=== PATIENT | male | born 1960 | race African-American/Black ===

== ENCOUNTER 2019-09-21 00:33 | Outpatient (CLI) | payer OTHER, SELFPAY ==
[2019-09-21 17:31] LABS: SARS-CoV-2 RNA PCR Negative
== END 2019-09-21 00:34 | disposition home or self-care (01) ==
LOC: ANHCOVIDDT 00:33
PROVIDERS: Internal Medicine Gastroenterology; PCP Internal Medicine; Visit Provider Internal Medicine Gastroenterology
DX: Z01.812 Encounter for preprocedural laboratory examination (principal); Z20.828 Contact with and (suspected) exposure to other viral communicable diseases
CPT/HCPCS: 87635; C9803; U0003

== ENCOUNTER 2019-09-23 01:50 | Day surgery (SDC) | payer OTHER, SELFPAY ==
[2019-09-15 13:41] VITALS: BMI 32.8
[2019-09-23 06:28] VITALS: BP 135/61; PULSE 76; RESP 14; TEMP 37; O2SAT 96
[2019-09-23] MEDS: LACTATED RINGERS 1,000 ML 150 ML IV CONT (06:42)
[2019-09-23 06:51] LABS: Glucose Point of Care 99 (65-105)
--- NOTE | 2019-09-23 06:52 | P.HP_ITS ---
History of Present Illness History of Present Illness Consent: Risks, benefits, and alternatives have been discussed and questions answered. Patient agrees to proceed with procedure. Chief complaint: Neoplasm Screening Narrative: Kush Gonsalez III is a 59 year old AA male Referred for screening colonoscopy. Patient is asymptomatic. There is no known family history of colon polyps or colon cancer. Patient states he had a colonoscopy 10-15 years ago which was normal. [facility] Past Medical History Medical History Dyslipidemia Gout Hypertension Surgical History Surgical History S/P left knee arthroscopy Social History Social History Smoking status: Never smoker Alcohol intake: current Drinks per week: 6 Substance use: never Meds Home Medications and Allergies Home Medications Medication Instructions Recorded Confirmed Type hydrochlorothiazide 25 mg tablet 25 mg PO DAILY 06/15/19 09/15/19 History metformin 500 mg tablet 1,000 mg PO DAILY 06/15/19 09/15/19 History naproxen 500 mg tablet 500 mg PO PRN PRN 06/15/19 09/15/19 History phentermine 37.5 mg capsule 37.5 mg PO DAILY 06/15/19 09/15/19 History losartan 50 mg tablet 50 mg PO DAILY #90 tablet 06/21/19 09/15/19 Rx testosterone cypionate 200 mg/mL 200 mg IM WEEKLY #10 ml 06/21/19 09/15/19 Rx intramuscular oil sildenafil [Viagra] 100 mg PO PRN PRN 09/15/19 09/15/19 History tamsulosin 0.4 mg PO DAILY 09/15/19 09/15/19 History Allergies Allergy/AdvReac Type Severity Reaction Status Date / Time No Known Allergies Allergy Unverified 09/23/19 06:25 Vital Signs Vital Signs - 24 hr 09/23/19 06:28 Temperature 37.0 C Pulse Rate 76 Respiratory Rate 14 Blood Pressure 135/61 Pulse Oximetry 96 Exam Const: Orientation/consciousness: patient oriented x3 Resp: Auscultation: clear to auscultation bilaterally Cardio: Rate: regular rate Rhythm: regular rhythm Heart sounds: no mu rmurs GI: GI Palp: Yes Soft to palpation, No Tenderness to palpation present (GI), Yes No hepatosplenomegaly present and No Palpable mass present Auscultation: normal bowel sounds Neuro: General: patient oriented x3 and no focal motor deficits Extrem: General: no pedal edema Assessment and Plan Assessment and plan (1) Erectile dysfunction: Code(s): N52.9 - Male erectile dysfunction, unspecified Status: Acute (2) Diabetes: Code(s): E11.9 - Type 2 diabetes mellitus without complications Status: Acute Additional Plan screening colonoscopy in average risk patient
--- NOTE | 2019-09-23 06:59 | WPDANESEPPF ---
Anes - Initial Pre Proc Eval Procedure: Operation Date: 09/23/19 07:30 Proposed Procedures p Screening Colonoscopy - Jay Deng MD Date/Time: 09/23/19 06:59 Surgeon: Jay Deng MD Pre Op Diagnosis: Neoplasm Screening Patient Data Age: 59 Gender: M Height: 6 ft Weight: 133.3 kg Last Vital Signs Temp 37.0 C 09/23/19 06:28 Pulse 76 09/23/19 06:28 Resp 14 09/23/19 06:28 BP 135/61 09/23/19 06:28 Pulse Ox 96 09/23/19 06:28 Allergies Allergy/AdvReac Type Severity Reaction Status Date / Time No Known Allergies Allergy Unverified 09/23/19 06:25 Home Medications Medication Instructions Recorded Confirmed Type hydrochlorothiazide 25 mg tablet 25 mg PO DAILY 06/15/19 09/15/19 History metformin 500 mg tablet 1,000 mg PO DAILY 06/15/19 09/15/19 History naproxen 500 mg tablet 500 mg PO PRN PRN 06/15/19 09/15/19 History phentermine 37.5 mg capsule 37.5 mg PO DAILY 06/15/19 09/15/19 History losartan 50 mg tablet 50 mg PO DAILY #90 tablet 06/21/19 09/15/19 Rx testosterone cypionate 200 mg/mL 200 mg IM WEEKLY #10 ml 06/21/19 09/15/19 Rx intramuscular oil sildenafil [Viagra] 100 mg PO PRN PRN 09/15/19 09/15/19 History tamsulosin 0.4 mg PO DAILY 09/15/19 09/15/19 History Laboratory Tests 09/23/19 06:48 POC Capillary Glucose 99 mg/dl mg/dl (65-105) Patient hx anesthesia problems: none Family hx anesthesia problems: none PMFSH Past Medical History Medical History Dyslipidemia Gout Hypertension Surgical History Surgical History S/P left knee arthroscopy Social History Social History Smoking status: Never smoker Alcohol intake: current Drinks per week: 6 Substance use: never Anes - Eval Final PreProcedure Day of Procedure 09/23/19 06:59 Patient weight: morbidly obese Heart: regular rate and rhythm Lungs: clear to auscultation Airway: Mallampati scale class II Neurological: alert and oriented Last oral intake: >/= 8 hours ASA classification: III Emergent: no Anesthetic plan: proceed Anesthesia type and monitoring: general GIVS and standard monitoring Informed Consent: The patient's anesthetic plan and its attendant risks and benefits were discussed with the patient/family/POA. Questions were solicited and answers provided to the satisfaction of the patient/family/POA.
[2019-09-23 07:46] VITALS: BP 105/70; PULSE 85; RESP 20; O2SAT 96
[2019-09-23 07:56] VITALS: BP 124/71; PULSE 78; RESP 20; O2SAT 97
[2019-09-23 08:06] VITALS: BP 127/76; PULSE 77; RESP 22; O2SAT 96
== END 2019-09-23 08:17 | disposition home or self-care (01) ==
PROVIDERS: PCP Family Medicine; Visit Provider Internal Medicine Gastroenterology
PROC: 0DJD8ZZ Inspection of Lower Intestinal Tract, Via Natural or Artificial Opening Endoscopic (ICD-10-PCS; CPT 45378; principal; 2019-09-23 07:30)
DX: Z12.11 Encounter for screening for malignant neoplasm of colon (principal); K64.1 Second degree hemorrhoids; K64.4 Residual hemorrhoidal skin tags; E78.5 Hyperlipidemia, unspecified; I10 Essential (primary) hypertension; M10.9 Gout, unspecified; N52.9 Male erectile dysfunction, unspecified; E11.9 Type 2 diabetes mellitus without complications; Z79.84 Long term (current) use of oral hypoglycemic drugs
CPT/HCPCS: 45378; J2704; J7120

== ENCOUNTER 2019-10-27 17:45 | Outpatient (CLI) | payer OTHER, SELFPAY ==
--- NOTE | ~2019-10-27 | US_ITS ---
EXAMINATION: US venous doppler UE LT DATE: 10/27/2019 19:10 INDICATION: Left upper extremity pain and lump TECHNIQUE: Grayscale ultrasound images without and with compression and Doppler ultrasound images of the left upper extremity veins were obtained. COMPARISON: None. FINDINGS: The left internal jugular vein, subclavian vein, axillary vein, brachial veins, basilic vein, cephali c vein, radial vein, and ulnar vein are patent. There is a 3 mm hypoechoic area in the superficial ash bcutaneous tissues near the left elbow without internal vascularity. IMPRESSION: 1. No evidence of deep venous thrombosis. 2. Tiny hypoechoic area in the area of clinical concern in the superficial subcutaneous tissues with no internal vascularity, possibly related to prior trauma. Continued clinical follow-up is recommende d. Reviewed, dictated and finalized at location A. IMPRESSION: 1. No evidence of deep venous thrombosis. 2. Tiny hypoechoic area in the area of clinical concern in the superficial subc utaneous tissues with no internal vascularity, possibly related to prior trauma . Continued clinical follow-up is recommended.
== END 2019-10-27 17:46 | disposition home or self-care (01) ==
PROVIDERS: PCP Family Medicine; Visit Provider Nurse Practitioner Family
DX: R22.32 Localized swelling, mass and lump, left upper limb (principal); M79.622 Pain in left upper arm
CPT/HCPCS: 93971

== ENCOUNTER 2020-02-01 10:49 | Outpatient (CLI) | payer OTHER, SELFPAY ==
--- NOTE | ~2020-02-01 | XR_ITS ---
XR foot RT min 3V DATE: 02/01/2020 11:04 INDICATION: Right ankle and dorsal foot pain for months TECHNIQUE: 4 views COMPARISON: None FINDINGS: Slight plantar and mild posterior calcaneal enthesopathy. There is hypertrophic degenerative spurring dorsally at the tarsal and tarsal-metatarsal joints consi stent with osteoarthritis. There is severe osteophyte is at the first metatarsophalangeal joint. There is mild hallux valgus and bunion deformity. No fracture, dislocation, periosteal reaction or bone destruction is detected. IMPRESSION: Polyarticular osteoarthritis Calcaneal enthesopathy Hallux valgus and bunion deformity Reviewed, dictated and finalized at location A.
--- NOTE | ~2020-02-01 | XR_ITS ---
XR ankle RT min 3V DATE: 02/01/2020 11:04 INDICATION: Right ankle and foot pain for months. No injury. TECHNIQUE: 4 views COMPARISON: None FINDINGS: No fracture or dislocation of the ankle or disruption of the ankle mortise. No periosteal r eaction or bone destruction. Hypertrophic osteophytic spurring is noted at the tarsal and tarsometatarsal joints. Mild posterior and slight inferior calcaneal enthesopathy. IMPRESSION: No fracture or dislocation of the ankle Plantar and posterior calcaneal enthesopathy Osteophytic changes at the tarsal and tarsometatarsal joints Reviewed, dictated and finalized at location A.
== END 2020-02-01 10:50 | disposition home or self-care (01) ==
PROVIDERS: PCP Family Medicine; Visit Provider Family Medicine
DX: M77.31 Calcaneal spur, right foot (principal); M20.11 Hallux valgus (acquired), right foot; M19.071 Primary osteoarthritis, right ankle and foot; M77.32 Calcaneal spur, left foot
CPT/HCPCS: 73610; 73630

== ENCOUNTER 2020-04-03 07:54 | Outpatient (CLI) | payer OTHER, SELFPAY ==
--- NOTE | 2020-04-08 17:01 | WPDHOMESLEEP ---
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 He has a history of obstructive sleep apnea on a prior home sleep test 10/21/2018 with an AHI of 25.2 and desaturation to 73% with 62 minutes or 14% of the time spent below 88%. He has lost significant amount of weight. His prior BMI was 40.6 with a weight of 300 lb. Now, he weighs 200 lb with a BMI of 27.1. This home sleep test is to re-evaluate his need for ongoing use of CPAP. He does not awaken from sleep feeling short of breath. He does not awaken at night with heartburn and belching or coughing. He rarely snores and it is rarely loud enough that others complain about it. He occasionally has trouble sleep with a cold. He denies gasping for breath at night, does not have breathing problems at night reported to him by others, does not sweat excessively at night or notices his heart pounding or beating irregularly at night. He denies falling asleep during the day. He does not fall asleep involuntarily, while driving, with physical effort. He denies loss of muscle tone was strong emotion. He does not have daytime difficulties due to excessive sleepiness. He does not feel paralyzed on waking or falling asleep. He does not have vivid dreamlike scenes upon awakening or falling asleep. He is never afraid to go to sleep. He denies nightmares, he does not recall his dreams. He does not have racing thoughts. He does not feel sad or depressed. He denies having anxiety. He denies muscular tension, noticing parts of his body jerking, kicking at night, crawling or aching feelings in his legs at night, leg pain at night or morning jaw pain. He denies grinding his teeth during sleep. He had is not bothered by pain during the day nor is her awakened with pain at night. He does not take naps. A short nap may be refreshing. He feels refreshed when he wakes in the morning. Normal bedtime is 4:00 p.m.- 5:00 p.m., falling asleep within 20 minutes. He wakes at 9:00 p.m.. He estimates 6-8 hours of sleep however if he goes to bed at 4:00 p.m. and sleeps until 9:00 p.m. that is 5 hours at most. He keeps the same schedule on the weekends. He works split shifts 9:00 p.m. until 10:00 a.m. 9 [facility] Past Medical History Medical History (Updated 04/08/20 @ 23:08 by Hazel Parisi MD) Dyslipidemia Gout Hypertension Obstructive sleep apnea Surgical History Surgical History S/P left knee arthroscopy Social History Social History Smoking status: Never smoker Alcohol intake: current Drinks per week: 6 Substance use: never Medications Home Medications Medication Instructions Recorded Confirmed Type hydrochlorothiazide 25 mg tablet 25 mg PO DAILY 06/15/19 09/15/19 History metformin 500 mg tablet 1,000 mg PO DAILY 06/15/19 09/15/19 History naproxen 500 mg tablet 500 mg PO PRN PRN 06/15/19 09/15/19 History phentermine 37.5 mg capsule 37.5 mg PO DAILY 06/15/19 09/15/19 History losartan 50 mg tablet 50 mg PO DAILY #90 tablet 06/21/19 09/15/19 Rx sildenafil [Viagra] 100 mg PO PRN PRN 09/15/19 09/15/19 History tamsulosin 0.4 mg PO DAILY 09/15/19 09/15/19 History testosterone cypionate 200 mg/mL 200 mg IM WEEKLY #10 ml 01/19/20 Rx intramuscular oil Sleep Procedure This test was performed using 4 channel monitoring including respiratory effort channel, snoring channel, heart rate channel, and oxygen saturation channel. This study was scored using [facility] guidelines. Sleep Architecture Not applicable fo
[2020-04-08 23:19] VITALS: BMI 27.1
== END 2020-04-03 07:55 | disposition home or self-care (01) ==
LOC: ANHCSM 07:54
PROVIDERS: PCP Family Medicine; Visit Provider Family Medicine
DX: G47.33 Obstructive sleep apnea (adult) (pediatric) (principal)
CPT/HCPCS: 95806

== ENCOUNTER 2021-09-03 00:32 | Day surgery (SDC) | payer OTHER, SELFPAY ==
[2021-08-16 13:32] VITALS: BMI 24.2
--- NOTE | 2021-08-31 15:06 | PM.HPGS ---
History of Present Illness History of Present Illness Consent: Risks, benefits, and alternatives have been discussed and questions answered. Patient agrees to proceed with procedure. Chief complaint: neoplasm screening Narrative: Kush Gonsalez III is a 61 year old male Referred for colon cancer screening. Review of Systems Review of Systems: All systems reviewed & are unremarkable except as noted in HPI and below PMFSH Past Medical History Medical History Dyslipidemia Gout Hypertension Obstructive sleep apnea Surgical History Surgical History S/P left knee arthroscopy Social History Social History Smoking status: Never smoker Alcohol intake: current Drinks per week: 1 Alcohol use details: 1 per month Substance use: never Substance use type: does not use Living arrangements: with family Spiritual care concerns: No Meds Home Medications and Allergies Home Medications Medication Instructions Recorded Confirmed Type sildenafil [Viagra] 100 mg PO PRN PRN 09/15/19 08/16/21 History testosterone cypionate 200 mg/mL 200 mg IM WEEKLY #10 ml 01/19/20 08/16/21 Rx intramuscular oil allopurinol 100 mg PO DAILY 08/16/21 08/16/21 History Allergies Allergy/AdvReac Type Severity Reaction Status Date / Time No Known Allergies Allergy Verified 09/03/21 06:27 Exam Resp: Auscultation: clear to auscultation bilaterally Cardio: Rate: regular rate Rhythm: regular rhythm GI: GI Palp: Yes Soft to palpation and No Tenderness to palpation present (GI) Assessment and Plan Assessment and plan (1) Colon cancer screening: Code(s): Z12.11 - Encounter for screening for malignant neoplasm of colon Status: Acute Assessment and Plan: Colonoscopy with possible biopsy or polypectomy or cautery or injection of substances.
[2021-09-03 06:28] VITALS: BP 128/62; PULSE 58; RESP 18; TEMP 36.2; O2SAT 100
[2021-09-03] MEDS: LACTATED RINGERS 1,000 ML 150 ML IV CONT (06:41)
--- NOTE | 2021-09-03 07:10 | WPDANESEPPF ---
Anes - Initial Pre Proc Eval Procedure: Operation Date: 09/03/21 07:30 Proposed Procedures p Screening Colonoscopy - Edmund Claros MD Date/Time: 09/03/21 07:10 Surgeon: Edmund Claros MD Pre Op Diagnosis: neoplasm screening Patient Data Age: 61 Gender: M Height: 1.83 m Weight: 79.7 kg Last Vital Signs Temp 97.1 F L 09/03/21 06:28 Pulse 58 L 09/03/21 06:28 Resp 18 09/03/21 06:28 BP 128/62 09/03/21 06:28 Pulse Ox 100 09/03/21 06:28 Allergies Allergy/AdvReac Type Severity Reaction Status Date / Time No Known Allergies Allergy Verified 09/03/21 06:27 Home Medications Medication Instructions Recorded Confirmed Type sildenafil [Viagra] 100 mg PO PRN PRN 09/15/19 08/16/21 History testosterone cypionate 200 mg/mL 200 mg IM WEEKLY #10 ml 01/19/20 08/16/21 Rx intramuscular oil allopurinol 100 mg PO DAILY 08/16/21 08/16/21 History Patient hx anesthesia problems: none Family hx anesthesia problems: none Results Review: All pre-operative results and documents have been reviewed as part of the pre-operative evaluation. [facility] Past Medical History Medical History Dyslipidemia Gout Hypertension Obstructive sleep apnea Surgical History Surgical History S/P left knee arthroscopy Social History Social History Smoking status: Never smoker Alcohol intake: current Drinks per week: 1 Alcohol use details: 1 per month Substance use: never Substance use type: does not use Living arrangements: with family Spiritual care concerns: No Anes - Eval Final PreProcedure Day of Procedure 09/03/21 07:10 Patient weight: normal Heart: regular rate and rhythm Lungs: clear to auscultation Airway: Mallampati scale class II Neurological: alert and oriented Last oral intake: >/= 8 hours ASA classification: II Emergent: no Anesthetic plan: proceed Anesthesia type and monitoring: general GIVS and standard monitoring Results Review: All pre-operative results and documents have been reviewed as part of the pre-operative evaluation. Informed Consent: The patient's anesthetic plan and its attendant risks and benefits were discussed with the patient/family/POA. Questions were solicited and answers provided to the satisfaction of the patient/family/POA.
[2021-09-03 07:45] VITALS: BP 97/55; PULSE 53; RESP 18; O2SAT 99
[2021-09-03 07:55] VITALS: BP 113/70; PULSE 53; RESP 17; O2SAT 100
[2021-09-03 08:05] VITALS: BP 129/75; PULSE 50; RESP 20; O2SAT 100
== END 2021-09-03 08:10 | disposition home or self-care (01) ==
PROVIDERS: PCP Family Medicine; Visit Provider Internal Medicine Gastroenterology
PROC: 0DJD8ZZ Inspection of Lower Intestinal Tract, Via Natural or Artificial Opening Endoscopic (ICD-10-PCS; CPT 45378; principal; 2021-09-03 07:30)
DX: Z12.11 Encounter for screening for malignant neoplasm of colon (principal); K64.8 Other hemorrhoids; E78.5 Hyperlipidemia, unspecified; I10 Essential (primary) hypertension; M10.9 Gout, unspecified; G47.33 Obstructive sleep apnea (adult) (pediatric)
CPT/HCPCS: 45378; J2704; J7120

== ENCOUNTER 2021-09-15 12:47 | Outpatient (CLI) | payer OTHER, SELFPAY ==
[2021-09-19 10:39] LABS: Testosterone Total 296 ng/dL (250-1100)
== END 2021-09-15 12:48 | disposition home or self-care (01) ==
LOC: ANHLAB 12:49
PROVIDERS: PCP Family Medicine; Visit Provider Nurse Practitioner Adult Health
DX: E29.1 Testicular hypofunction (principal)
CPT/HCPCS: 36415; 84403

== ENCOUNTER 2021-11-30 15:47 | Emergency (ER) | payer OTHER, SELFPAY ==
--- NOTE | ~2021-11-30 | CT_ITS ---
EXAMINATION: CT abdomen pelvis w con DATE: 11/30/2021 17:24 INDICATION: Right abdominal pain TECHNIQUE: Computed tomography (CT) of the abdomen and pelvis was performed with 100 mL Omnipaque-300 intravenous contrast. Automated exposure control and iterative reconstruction technique were employe d. The dose-length product was 965.82 mGy-cm. COMPARISON: None FINDINGS: Mild atelectasis in the right lower lobe. Heart size is normal. No pericardial or pleural effusion. A therosclerotic coronary artery calcific lesion. Postoperative change of prior Florina-en-Y gastric bypas s procedure. Mild wall thickening at the gastroesophageal junction which could be esophagitis related to reflux. For hepatic steatosis along the ligamentum teres. Gallbladder, spleen, pancreas and bilat eral adrenal glands are normal. Bilateral low-attenuation renal cysts the larger on the right measuri ng 1.5 cm. No abnormal bowel wall thickening or obstruction. No free intraperitoneal gas or fluid. No pathologically enlarged abdominal or pelvic lymphadenopathy. There is calcified atherosclerosis of t he aorta and many of the other arteries. Posttraumatic changes in the pelvis with old fracture deform ity at the distal sacrum and associated heterotopic ossification. Screw extending across the right po sterior iliac spine and right sacral joint and across the sacrum. Plate and screw fixation spanning t he pubic symphysis with additional associated heterotopic ossification. Streak artifact related to th e plain screw fixation partially obscures the otherwise normal-appearing bladder. Ankylosis across th e bilateral sacroiliac joints. Moderate lower thoracic, mild lumbar and severe lumbosacral spondylosi s. IMPRESSION: 1. Postoperative change of prior gastric bypass procedure with wall thickening at the gastroesophagea l junction which could be related to reflux esophagitis. No other acute intra-abdominal/pelvic proces s. 2. Posttraumatic and postoperative changes in the pelvis as detailed above. Reviewed, dictated and finalized at location A. IMPRESSION: 1. Postoperative change of prior gastric bypass procedure with wall thickening at the gastroesophageal junction which could be related to reflux esophagitis. No other acute intra-abdominal/pelvic process. 2. Posttraumatic and postoperative changes in the pelvis as detailed above.
[2021-11-30 16:23] VITALS: BP 124/66; PULSE 61; RESP 18; TEMP 36.3; O2SAT 97
[2021-11-30 16:46] LABS: Basophils Percent Auto 1.1 % (0.2-1.2); Eosinophils Absolute Auto 0.1 K/mm3 (0-0.3); Eosinophils Percent Auto 1.6 % (0-4.4); Hematocrit 44.6 % (42.0-52.0); Hemoglobin 14.2 g/dL (14.0-18.0); Lymphocytes Absolute Auto 1.55 K/mm3 (0.9-3.2); Lymphocytes Percent Auto 41.4 % (18.3-44.2); Mean Corpuscular HGB Conc 31.8 g/dl (32-36); Mean Platelet Volume 9.6 fl (7.4-10.4); Monocytes Absolute Auto 0.4 K/mm3 (0.1-0.6); Monocytes Percent Auto 9.4 % (2.6-8.5); Neutrophils Absolute Auto 1.7 K/mm3 (1.3-6.7); Neutrophils Percent Auto 46.5 % (45.5-73.1); Platelet Count Result 232 k/mm3 (150-375); Red Blood Count 5.25 M/mm3 (4.6-6.20); Red Cell Distribution Width 13.7 % (11.5-14.5); White Blood Count 3.7 K/mm3 (4.5-10.0)
[2021-11-30 16:56] LABS: Alanine Aminotransferase 57 U/L (6-50); Albumin Level 4.4 g/dL (3.5-5.1); Alkaline Phosphatase 94 U/L (38-126); Anion Gap 11 mmol/L (8-16); Aspartate Amino Transferase 63 U/L (17-59); Bilirubin,Total 1.2 mg/dL (0.2-1.3); Blood Urea Nitrogen 18 mg/dL (9-20); Calcium 9.1 mg/dL (8.4-10.2); Carbon Dioxide 24 mmol/L (22-30); Chloride 101 mmol/L (98-107); Estimated CRCL calculation 82 ml/min; Estimated Glomerular Filt Rate > 60; Glucose 91 mg/dL (65-110); Lipase 512 U/L (23-300); Sodium 136 mmol/L (137-145)
[2021-11-30 17:09] LABS: Add Urine Microscopic? NO; Appearance Urine Clear (Clear); Bilirubin Urine Negative (Negative); Blood Urine Negative (Negative); Color Urine Yellow (Yellow); Glucose Urine UA Negative (Negative); Ketones Urine Negative (Negative); Leukocyte Esterase Ur Negative LEU/UL (Negative); Nitrate Urine Negative (Negative); Protein Urine Negative (Negative); Urobilinogen Urine 0.2 mg/dL (<2.0); pH Urine 5.5 (5.0-9.0)
--- NOTE | 2021-11-30 17:10 | ED.ABDPAIN ---
HPI - Abdominal Pain General Chief Complaint: Abdominal Pain Stated Complaint: abd pain Time Seen by Provider: 11/30/21 16:14 Source: patient Mode of arrival: EMS Limitations: no limitations History of Present Illness HPI narrative: Patient is a 61-year-old male who presents the ED via EMS with report of epigastric/RUQ pain. Patient reports a history of bariatric surgery several years ago. Approximately 6 months ago he reports he had an episode of significant pain in his upper abdomen. He was evaluated for gallbladder disease at that time and reports everything came back negative. Tonight approximately 2 hours ago, patient reports he was out to eat at a restaurant when he suddenly developed pain in his RUQ/right flank region. He states pain doubled him over at that time. Fianc? called EMS. Patient c/o pain 11/04 currently. Has not taken anything for pain prior to arrival. Denies dysuria, hematuria, fever, nausea, vomiting, diarrhea, constipation, chest pain, SOB. Patient does mention he works out frequently and did a a strenuous abdominal workout yesterday. Related Data Home Medications Medication Instructions Recorded Confirmed sildenafil 100 mg tablet (Viagra) 100 mg PO PRN PRN sexual activity 09/15/19 08/16/21 allopurinol 100 mg tablet 100 mg PO DAILY 08/16/21 08/16/21 Allergies Allergy/AdvReac Type Severity Reaction Status Date / Time No Known Allergies Allergy Verified 09/03/21 06:27 Review of Systems Review of Systems: CONSTITUTIONAL: Denies fever, chills, or sweats. CARDIOVASCULAR: Denies chest pain. RESPIRATORY: Denies dyspnea. GASTROINTESTINAL: Reports RUQ/epigastric pain. Denies nausea, vomiting, or diarrhea. GENITOURINARY: Denies dysuria or hematuria. MUSCULOSKELETAL: Reports R flank pain. All systems reviewed & are unremarkable except as noted in HPI and below PMFSH Past Medical History Medical History Dyslipidemia Gout Hypertension Obstructive sleep apnea Surgical History Surgical History S/P left knee arthroscopy Social History Social History Smoking status: Never smoker Alcohol intake: current Drinks per week: 1 Alcohol use details: 1 per month Substance use: never Substance use type: does not use Spiritual care concerns: No Exam Narrative: GENERAL: Well appearing, well-nourished, non-toxic, in no acute distress. HEAD: Normocephalic, atraumatic. NECK: Supple. No adenopathy, no masses. RESPIRATORY: Airway patent, respirations nonlabored. Clear to auscultation bilaterally, no rales, rhonchi, wheezing. CARDIOVASCULAR: Regular rate and rhythm without murmurs, rubs, or gallops. Peripheral pulses 2+ and equal bilaterally. ABDOMINAL: Soft, diffuse tenderness to palpation throughout abdomen - most tender in RUQ, epigastric region, RLQ. Nondistended, no hepatosplenomegaly. Normoactive BS. MUSCULOSKELETAL: Moves all extremities. Strength/ROM intact without gross deformities. No midline spinal tenderness in thoracic or lumbar spine. Point tenderness to palpation in R lower back/lateral abdomen, along longer ribcage. SKIN: Warm, dry, normal color. No rashes. NEURO: A&O X3. Speech clear. Cranial nerves II-XII grossly intact. Steady gait. No ataxic movements. PSYCHIATRIC: Appropriate mood and affect. Normal interaction. Course Vital Signs Vital signs: Vital Signs Temperature 97.4 F L 11/30/21 16:23 Pulse Rate 61 11/30/21 16:23 Respiratory Rate 18 11/30/21 16:23 Blood Pressure 124/66 11/30/21 16:23 Pulse Oximetry 97 11/30/21 16:23 Oxygen Delivery Room Air 11/30/21 16:23 Temperature 97.4 F L 11/30/21 16:23 Pulse Rate 64 11/30/21 19:15 Respiratory Rate 18 11/30/21 19:15 Blood Pressure 128/69 11/30/21 19:15 Pulse Oximetry 99 11/30/21 19:15 Oxygen Delivery Room Air 11/30/21 16:23
[2021-11-30] MEDS: KETOROLAC 30 MG/ML VIAL (*BKC) IV PUSH (18:04)
[2021-11-30] MEDS: MORPHINE SULFATE (*CRX) 4 MG/ML INJ IV PUSH (18:04)
[2021-11-30 19:15] VITALS: BP 128/69; PULSE 64; RESP 18; O2SAT 99
== END 2021-11-30 19:49 | disposition home or self-care (01) ==
PROVIDERS: Emergency Provider Emergency Medicine; PCP Family Medicine
DX: R10.11 Right upper quadrant pain (principal); E78.5 Hyperlipidemia, unspecified; I10 Essential (primary) hypertension; G47.33 Obstructive sleep apnea (adult) (pediatric); M10.9 Gout, unspecified; Z98.84 Bariatric surgery status
CPT/HCPCS: 36415; 74177; 80053; 81003; 83690; 85025; 96365; 96375; 99284; J0131; J1885; J2270; Q9967

== ENCOUNTER 2024-06-25 00:09 | Day surgery (SDC) | payer BC, SELFPAY ==
[2024-06-11 13:49] VITALS: BMI 25.0
--- NOTE | 2024-06-25 07:17 | SUR.PREOP ---
estrella silveira notified pt drank 4oz coffee at 0500
[2024-06-25 07:18] VITALS: BP 142/62; PULSE 55; RESP 16; TEMP 36.2; O2SAT 100; BMI 25.9
[2024-06-25] MEDS: LACTATED RINGERS 1,000 ML 150 ML IV CONT (07:28)
--- NOTE | 2024-06-25 07:32 | WPDANESEPPF ---
Anes - Initial Pre Proc Eval Procedure: Operation Date: 06/25/24 08:30 Proposed Procedures p Colonoscopy - Yevgeniy Blanca MD Date/Time: 06/25/24 07:32 Surgeon: Yevgeniy Blanca MD Pre Op Diagnosis: Proc and treatment not carried out Patient Data Age: 63 Gender: M Height: 1.83 m Weight: 86.8 kg Last Vital Signs Temp 36.2 C L 06/25/24 07:18 Pulse 55 L 06/25/24 07:18 Resp 16 06/25/24 07:18 BP 142/62 H 06/25/24 07:18 Pulse Ox 100 06/25/24 07:18 O2 Del Method Room Air 06/25/24 07:18 Allergies Allergy/AdvReac Type Severity Reaction Status Date / Time No Known Allergies Allergy Verified 06/25/24 07:14 Home Medications ?Medication ?Instructions ?Recorded ?Confirmed ?Type sildenafil 100 mg tablet (Viagra) 100 mg PO PRN PRN sexual activity 09/15/19 06/11/24 History testosterone cypionate 200 mg/mL 200 mg IM WEEKLY #10 mL 01/19/20 06/25/24 Rx intramuscular oil allopurinol 100 mg tablet 100 mg PO DAILY 08/16/21 06/25/24 History cyclobenzaprine 5 mg tablet 5 mg PO TID PRN muscle spasm #9 11/30/21 06/11/24 Rx tabs Patient hx anesthesia problems: none Family hx anesthesia problems: none Results Review: All pre-operative results and documents have been reviewed as part of the pre-operative evaluation. [facility] Past Medical History Medical History (Updated 06/25/24 @ 07:36 by Karl Pittman DO) Obstructive sleep apnea hx of before 300 lb weight loss Gout Dyslipidemia hx of before 300 lb weight loss Hypertension hx of before 300 lb weight loss Surgical History Surgical History S/P left knee arthroscopy Social History Social History Smoking status: Never smoker Alcohol intake: current Drinks per week: 2 Alcohol use details: 1 per month Substance use: never Substance use type: does not use Living arrangements: with family Spiritual care concerns: No Anes - Eval Final PreProcedure Day of Procedure 06/25/24 07:32 Patient weight: overweight Heart: regular rate and rhythm Lungs: clear to auscultation Airway: Mallampati scale class II Neurological: alert and oriented Last oral intake: >/= 8 hours ASA classification: II Emergent: no Anesthetic plan: proceed Anesthesia type and monitoring: general GIVS and standard monitoring Results Review: All pre-operative results and documents have been reviewed as part of the pre-operative evaluation. Informed Consent: The patient's anesthetic plan and its attendant risks and benefits were discussed with the patient/family/POA. Questions were solicited and answers provided to the satisfaction of the patient/family/POA.
--- NOTE | 2024-06-25 08:12 | PM.HPGS ---
History of Present Illness History of Present Illness Consent: Risks, benefits, and alternatives have been discussed and questions answered. Patient agrees to proceed with procedure. Chief complaint: colon screen Narrative: Kush Gonsalez III is a 63 year old male here for screening colonoscopy, had one 2021 but poor prep Review of Systems Review of Systems: All systems reviewed & are unremarkable except as noted in HPI and below PMFSH Past Medical History Medical History (Updated 06/25/24 @ 07:36 by Karl Pittman, ) Obstructive sleep apnea hx of before 300 lb weight loss Gout Dyslipidemia hx of before 300 lb weight loss Hypertension hx of before 300 lb weight loss Surgical History Surgical History S/P left knee arthroscopy Social History Social History Smoking status: Never smoker Alcohol intake: current Drinks per week: 2 Alcohol use details: 1 per month Substance use: never Substance use type: does not use Living arrangements: with family Spiritual care concerns: No Meds Home Medications and Allergies Home Medications ?Medication ?Instructions ?Recorded ?Confirmed ?Type sildenafil 100 mg tablet (Viagra) 100 mg PO PRN PRN sexual activity 09/15/19 06/11/24 History testosterone cypionate 200 mg/mL 200 mg IM WEEKLY #10 mL 01/19/20 06/25/24 Rx intramuscular oil allopurinol 100 mg tablet 100 mg PO DAILY 08/16/21 06/25/24 History cyclobenzaprine 5 mg tablet 5 mg PO TID PRN muscle spasm #9 11/30/21 06/11/24 Rx tabs Allergies Allergy/AdvReac Type Severity Reaction Status Date / Time No Known Allergies Allergy Verified 06/25/24 07:14 Vital Signs Vital Signs - 24 hr 06/25/24 07:18 Temperature 97.2 F L Pulse Rate 55 L Respiratory Rate 16 Blood Pressure 142/62 H Pulse Oximetry 100 Oxygen Delivery Room Air Exam Const: General: comfortable and no acute distress HENMT: Face/Nose/Sinus: Normal nares present Eyes: General: appearance normal, both eyes and all related structures Neck: Neck: no JVD Resp: Auscultation: clear to auscultation bilaterally Cardio: Rate: regular rate Rhythm: regular rhythm GI: Inspection: non-distended GI Palp: Yes Soft to palpation Skin: General skin exam: normal color Neuro: General: gait normal Speech: normal speech Extrem: General: normal to inspection Psych: Mental Status: mental status grossly normal Assessment and Plan Assessment and plan (1) Colon cancer screening: Code(s): Z12.11 - Encounter for screening for malignant neoplasm of colon Status: Acute Assessment and Plan: colonoscopy
[2024-06-25 08:33] VITALS: BP 106/57; PULSE 57; RESP 19; O2SAT 98
[2024-06-25 08:43] VITALS: BP 121/66; PULSE 58; RESP 18; O2SAT 100
[2024-06-25 08:53] VITALS: BP 121/73; PULSE 53; RESP 18; O2SAT 100
== END 2024-06-25 09:04 | disposition home or self-care (01) ==
PROVIDERS: PCP Internal Medicine; Visit Provider Internal Medicine Gastroenterology
PROC: 0DJD8ZZ Inspection of Lower Intestinal Tract, Via Natural or Artificial Opening Endoscopic (ICD-10-PCS; CPT 45378; principal; 2024-06-25 08:30)
DX: Z12.11 Encounter for screening for malignant neoplasm of colon (principal); E78.5 Hyperlipidemia, unspecified; I10 Essential (primary) hypertension; G47.33 Obstructive sleep apnea (adult) (pediatric); Z98.890 Other specified postprocedural states
CPT/HCPCS: 45378; J2003; J2704; J7120